=== PATIENT | female | born 1990 | race Two or more races ===

== ENCOUNTER 2018-09-12 20:05 | Emergency (ER) | payer BC ==
[~2018-09-12] VITALS: Ht 165.1 cm; Wt 70.5 kg
[2018-09-12] MEDS ORDERED: methylPREDNISolone INJ 125 MG/2 ML VIAL (J2930) IV ONE (21:30)
[2018-09-12] MEDS ORDERED: ACETAMINOPHEN 325 MG TAB PO ONE (21:30)
[2018-09-12] MEDS ORDERED: IPRATROPIUM 0.5MG/ALBUTEROL 2.5MG INH SOL UD 3ML (DUONEB)(J7620) NEB ONE (21:30)
[2018-09-12] MEDS ORDERED: NS 1,000 ML IV ONE (21:30)
[2018-09-12 21:49] LABS: BASO % 0.2 % (0.0-1.0); HEMATOCRIT 36.3 % (36.0-47.0); HEMOGLOBIN 12.3 g/dl (12.0-15.5); LYMPH # 1.4 10^3/uL (1.5-6.5); LYMPH % 8.1 % (24.0-44.0); MEAN CORPUSCULAR HEMOGLOBIN 29.1 pg (27.0-33.0); MEAN CORPUSCULAR HGB CONC 33.9 g/dl (32.0-36.5); MEAN CORPUSCULAR VOLUME 85.8 fl (80.0-96.0); MONO # 0.9 10^3/uL (0.0-0.8); MONO % 5.6 % (0.0-5.0); NEUTROPHILS # 14.2 10^3/uL (1.8-7.7); NEUTROPHILS % 85.3 % (36.0-66.0); PLATELET COUNT, AUTOMATED 249 10^3/uL (150-450); RED BLOOD COUNT 4.23 10^6/uL (4.00-5.40); WHITE BLOOD COUNT 16.7 10^3/uL (4.0-10.0)
[2018-09-12] MEDS ORDERED: IBUPROFEN 800 MG TAB PO ONE (22:15)
[2018-09-12 22:18] LABS: ALBUMIN 3.8 GM/DL (3.2-5.2); ALT/SGPT 29 U/L (12-78); BILIRUBIN,DIRECT 0.1 MG/DL (0.0-0.2); BILIRUBIN,TOTAL 0.4 MG/DL (0.2-1.0); BLOOD UREA NITROGEN 4 MG/DL (7-18); CALCIUM LEVEL 8.4 MG/DL (8.5-10.1); CARBON DIOXIDE LEVEL 27 MEQ/L (21-32); CHLORIDE LEVEL 102 MEQ/L (98-107); CREATININE FOR GFR 0.79 MG/DL (0.55-1.30); GLOMERULAR FILTRATION RATE > 60.0 (>60); GLUCOSE, FASTING 110 MG/DL (70-100); POTASSIUM SERUM 3.7 MEQ/L (3.5-5.1); SODIUM LEVEL 136 MEQ/L (136-145); TOTAL PROTEIN 7.4 GM/DL (6.4-8.2)
[2018-09-12 23:02] VITALS: BP 130/62
[2018-09-12] MEDS ORDERED: PRED20TA PO (23:15)
[2018-09-12] MEDS ORDERED: TESS100C PO (23:15)
[2018-09-12] MEDS ORDERED: MUCI600T37 PO (23:17)
--- NOTE | 2018-09-13 09:09 | REP ---
Clinical: Cough and dyspnea . Comparison: None . Technique: PA and lateral. Findings: The mediastinum and cardiac silhouette are normal. The lung rosen are clear and without acute consolidation, effusion, or pneumothorax. The skeletal structures are intact and normal. Impression: 1. No acute cardiopulmonary process. Electronically Signed by Jace Benedict MD 09/13/2018 08:59 A
== END 2018-09-12 23:24 | disposition home or self-care (01) ==
LOC: M ED 20:05
DX: J11.1 Influenza due to unidentified influenza virus with other respiratory manifestations (principal)
CPT/HCPCS: 71046; 80048; 80076; 83605; 85025; 94640; 96361; 96374; 99284; J2930

== ENCOUNTER → 2019-02-24 | Outpatient (REF) ==
[~2019-02-24] MED LIST: MUCI600T37 PO; PRED20TA PO; TESS100C PO
[2019-02-24 18:32] LABS: BASO % 0.5 % (0.0-1.0); EOS # 0.3 10^3/uL (0.0-0.50); EOS % 3.4 % (0.0-3.0); HEMATOCRIT 36.9 % (36.0-47.0); HEMOGLOBIN 12.4 g/dl (12.0-15.5); LYMPH # 2.3 10^3/uL (1.5-6.5); LYMPH % 29.9 % (24.0-44.0); MEAN CORPUSCULAR HEMOGLOBIN 29.1 pg (27.0-33.0); MEAN CORPUSCULAR HGB CONC 33.6 g/dl (32.0-36.5); MEAN CORPUSCULAR VOLUME 86.6 fl (80.0-96.0); MONO # 0.4 10^3/uL (0.0-0.8); NEUTROPHILS # 4.7 10^3/uL (1.8-7.7); NEUTROPHILS % 60.9 % (36.0-66.0); PLATELET COUNT, AUTOMATED 293 10^3/uL (150-450); RED BLOOD COUNT 4.26 10^6/uL (4.00-5.40); WHITE BLOOD COUNT 7.6 10^3/uL (4.0-10.0)
== END ==
LOC: M LAB REF 18:08
PROVIDERS: ATTEND Allergy & Immunology Allergy
DX: J45.30 Mild persistent asthma, uncomplicated (principal)

== ENCOUNTER 2020-01-29 16:45 | Emergency (ER) | payer BC, OTHER ==
[~2020-01-29] VITALS: Ht 165.1 cm; Wt 73.1 kg
[2020-01-29] MEDS ORDERED: PROAAER10 (16:52)
[2020-01-29] MEDS ORDERED: ADV250INH (16:52)
[2020-01-29] MEDS ORDERED: CETI-24 (16:52)
[2020-01-29] MEDS ORDERED: ORSYTAB (16:52)
[2020-01-29] MEDS ORDERED: FLUTISP (16:52)
[2020-01-29] MEDS ORDERED: NAPROXEN 250 MG TAB PO ONE (17:15)
[2020-01-29 17:31] LABS: BASO # 0.1 10^3/uL (0.0-0.2); BASO % 0.7 % (0.0-1.0); EOS # 0.2 10^3/uL (0.0-0.5); EOS % 2.7 % (0.0-3.0); HEMATOCRIT 39.9 % (36.0-47.0); HEMOGLOBIN 13.3 g/dl (12.0-15.5); LYMPH # 2.1 10^3/uL (1.5-5.0); MEAN CORPUSCULAR HEMOGLOBIN 29.3 pg (27.0-33.0); MEAN CORPUSCULAR HGB CONC 33.3 g/dl (32.0-36.5); MEAN CORPUSCULAR VOLUME 87.9 fl (80.0-96.0); MONO # 0.4 10^3/uL (0.0-0.8); MONO % 4.8 % (0.0-5.0); NEUTROPHILS # 5.5 10^3/uL (1.5-8.5); NEUTROPHILS % 66.4 % (36.0-66.0); PLATELET COUNT, AUTOMATED 327 10^3/uL (150-450); RED BLOOD COUNT 4.54 10^6/uL (4.00-5.40); WHITE BLOOD COUNT 8.3 10^3/uL (4.0-10.0)
[2020-01-29 18:05] LABS: CK-MB VALUE MASS < 1.0 NG/ML (<3.6); CPK CREATINE PHOSPHOKINASE 125 U/L (26-192); TROPONIN I < 0.02 NG/ML (< 0.10)
[2020-01-29] MEDS ORDERED: NAPR-837 PO (18:14)
[2020-01-29 18:18] VITALS: BP 132/78
--- NOTE | 2020-01-30 09:13 | REP ---
TWO-VIEW CHEST: REASON: Cough and dyspnea. COMPARISON: 09/12/2018 FINDINGS: The superior mediastinal structures are midline. The cardiac silhouette is unremarkable in size, shape, and position. The diaphragmatic surfaces of the lungs are regular, and the costophrenic angles are clear. The pulmonary rosen are clear. The imaged osseous structures are intact. IMPRESSION: There is no acute cardiopulmonary disease. No significant change from the prior exam. Electronically Signed by Giovanni Wilson DO 01/30/2020 09:13 A
--- NOTE | 2020-01-30 09:39 | ECGEPIP ---
[facility] - ED Test Date: 2020-01-29 Pat Name: BASILIO ALFARO Department: Room: - Gender: Female Pe[employer]er: : 1990 Requested By: SHAY HERNANDEZ PA-C. Order Number: [id number] Reading MD: Juan Bauer Measurements Intervals Raymond Rate: 95 P: 51 MT: 112 QRS: 64 QRSD: 81 T: 18 QT: 331 QTc: 418 Interpretive Statements SINUS RHYTHM WITH SHORT MT INTERVAL NO PRIORS FOR COMPARISON Electronically Signed on 01-30-2020 9:39:05 EDT by Juan Bauer
== END 2020-01-29 18:19 | disposition home or self-care (01) ==
LOC: M ED 16:45
DX: R07.89 Other chest pain (principal); J45.909 Unspecified asthma, uncomplicated; Z79.899 Other long term (current) drug therapy; Z79.3 Long term (current) use of hormonal contraceptives; Z88.0 Allergy status to penicillin